=== PATIENT | male | born 1970 | race Hispanic/Latino ===

== ENCOUNTER 2020-01-07 14:38 | Inpatient (IN) | payer OTHER ==
--- NOTE | 2020-01-07 15:27 | Emergency Department Report ---
HPI - General Chief Complaint: Chest Pain Time Seen by Provider: 01/07/20 15:05 - HPI HPI: Room 26 The patient is a 49-year-old male present with a chief complaint of chest pain. The patient is an inmate and states that approximate 2 hours ago he was sitting on his bunk when he had a syncopal episode. The patient states his next memory is being attended to by staff. Patient states he was having pain in his chest feels like someone is stepping on a baseball on top of his chest. Patient admits to shortness of breath, diaphoresis and nausea without vomiting. Patient complains of pain in the left upper extremity and gives his chest pain score of 8/10. The patient also complains of pain at the forehead and face from his fall. ED Past Medical Hx - Past Medical History Previous Medical History?: Yes Hx Hypertension: Yes Hx Heart Attack/AMI: Yes (11 stents) Hx Congestive Heart Failure: Yes (EF of 15%, LAST ECHO ) Hx GERD: Yes Hx Kidney Stones: Yes Hx Psychiatric Treatment: Yes (BIPOLAR) - Surgical History Past Surgical History?: Yes Hx Coronary Stent: Yes Hx Cholecystectomy: Yes Additional Surgical History: RIGHT ELBOW - Family History Family history: no significant - Social History Smoking Status: Former Smoker Substance Use Type: None - Medications Home Medications: Home Medications Medication Instructions Recorded Confirmed Last Taken Type Apixaban [Eliquis] 5 mg PO Q12HR #60 tablet 12/20/19 Unknown Rx AtorvaSTATin [Lipitor] 80 mg PO QHS #30 tablet 12/20/19 Unknown Rx Clopidogrel [Plavix] 75 mg PO QDAY #30 tablet 12/20/19 Unknown Rx Furosemide [Lasix TAB] 40 mg PO DAILY@0600 #30 tablet 12/20/19 Unknown Rx Losartan [Cozaar] 12.5 mg PO QDAY #60 tablet 12/20/19 Unknown Rx Metoprolol [Lopressor TAB] 50 mg PO TID #90 tablet 12/20/19 Unknown Rx ED Review of Systems ROS: Stated complaint: CHEST PAIN Other details as noted in HPI Constitutional: diaphoresis Eyes: denies: eye pain ENT: denies: throat pain Respiratory: shortness of breath Cardiovascular: chest pain Endocrine: no symptoms reported Gastrointestinal: nausea. denies: vomiting Neurological: headache Physical Exam - Physical Exam Vital Signs: Vital Signs 01/07/20 01/07/20 14:43 15:15 Temperature 97.5 F L Pulse Rate 66 Respiratory 20 16 Rate Blood Pressure 132/90 O2 Sat by Pulse 96 96 Oximetry Physical Exam: GENERAL: The patient is well-developed well-nourished male lying on stretcher not appearing to be in acute distress. [] HEENT: Normocephalic. Minimal abrasion to the central forehead. Extraocular motions are intact. Patient has moist mucous membranes. NECK: Supple. No axial step-off CHEST/LUNGS: Clear to auscultation. There is no respiratory distress noted. HEART/CARDIOVASCULAR: Regular. There is no tachycardia. There is no gallop rub or murmur. ABDOMEN: Abdomen is soft, nontender. Patient has normal bowel sounds. There is no abdominal distention. SKIN: Abrasion to forehead. There is no diaphoresis. NEURO: The patient is awake, alert, and oriented. The patient is cooperative. The patient has no focal neurologic deficits. The patient has normal speech MUSCULOSKELETAL: There is no evidence of acute injury. ED Course Vital Signs 01/07/20 01/07/20 14:43 15:15 Temperature 97.5 F L Pulse Rate 66 Respiratory 20 16 Rate Blood Pressure 132/90 O2 Sat by Pulse 96 96 Oximetry ED Medical Decision Making - Lab Data Result diagrams: 01/07/20 15:53 01/07/20 15:53 Laboratory Tests 01/07/20 01/07/20 01/07/20 15:53 15:53 15:53 WBC 10.6 RBC 5.17 H Hgb 12.4 Hct 39.6 MCV 77 L MCH 24 L MCHC 31 L RDW 18.1 H Plt Count 227 Lymph % (Auto) 18.9 Cuming % (Auto) 6.5 Eos % (Auto) 2.2 Baso % (Auto) 1.2 Lymph # 2.0 Cuming # 0.7 Eos # 0.2 Baso # 0.1 Seg Neutrophils % 71.2 H Seg Neutrophils # 7.6 PT 17.0 H INR 1.42 H APTT 28.6 Sodium 141 Potassium 3.7 Chloride 107.8 H Carbon Dioxide 20 L Anion Gap 17 BUN 9 Creatinine 0.9 Estimated GFR > 60 BUN/Creatinine Ratio 10 Glucose 100 Calcium 8.9 Total Creatine Kinase 58 CK-MB (CK-2) 1.6 CK-MB (CK-2) Rel Index 2.7 Troponin T < 0.010 - EKG Data -: EKG Interpreted by Me EKG shows normal: sinus rhythm Rate: normal - EKG Data When compared to previous EKG there are: previous EKG unavailable Interpretation: other (PAC. No ischemic changes seen) - Radiology Data Radiology results: report reviewed (Chest x-ray, CT head, CT facial bones, CT cervical spine), image reviewed (Chest x-ray, CT head, CT facial bones, CT cervical spine) interpreted by me: Chest x-ray-no focal infiltrates, no pneumothorax [address] [address] Cat Scan Report Signed Patient: DONG BASILIO MR#: [id number] : 1970 Acct:[id number] Age/Sex: 49 / M ADM Date: 01/07/20 Loc: ED Attend ing Dr: Ordering Physician: MARICARMEN RAMOS MD Date of Service: 01/07/20 Procedure(s): CT head/brain wo con Accession Number(s): [id number] cc: MARICARMEN RAMOS MD CT head/brain wo con INDICATION / CLINICAL INFORMATION: 49 years Male; Syncopal episode, forehead injury. TECHNIQUE: Routine CT head without contrast. All CT scans at this location are performed using CT dose reduction for ALARA by means of automated exposure control. COMPARISON: None. FINDINGS: BRAIN / INTRACRANIAL CONTENTS: The brain appears to demonstrate appropriate attenuation for age. The ventricular system is within normal limits in size and configuration. There is no clear CT evidence of acute intracranial hemorrhage or significant mass effect. ORBITS: No significant abnormality of visualized orbits. SINUSES / MASTOIDS: There is minimal mucosal thickening along the posterior sphenoid sinuses. CRANIOCERVICAL JUNCTION: No significant abnormality. ADDITIONAL FINDINGS: None. IMPRESSION: 1. There is no CT evidence of acute intracranial process. Signer Name: Everardo Hutchinson MD Signed: 01/07/2020 4:49 PM Workstation Name: [id number] Transcribed By: MR Dictated By: Everardo Hutchinson MD Electronically Authenticated By: Everardo Hutchinson MD Signed Date/Time: 01/07/201648 DD/ 46 TD/TT: [address] [address] Cat Scan Report Signed Patient: DONG BASILIO MR#: [id number] : 1970 Acct:[id number] Age/Sex: 49 / M ADM Date: 01/07/20 Loc: ED Attending Dr: Ordering Physician: MARICARMEN RAMOS MD Date of Service: 01/07/20 Procedure(s): CT facial bones wo con Accession Number(s): [id number] cc: MARICARMEN RAMOS MD CT MAXILLOFACIAL WITHOUT CONTRAST INDICATION / CLINICAL INFORMATION: Syncopal episode, forehead injury. TECHNIQUE: All CT scans at this location are performed using CT dose reduction for ALARA by means of automated exposure control. COMPARISON: None available. FINDINGS: FACIAL BONES: There is no CT evidence of acute fracture involving the facial bones. The orbital fortune, sinuses and zygomatic arches appear intact. PARANASAL SINUSES: There is minimal mucosal thickening within the ethmoid air cells and along the posterior sphenoid sinuses. The maxillary sinuses are clear. The frontal sinuses are hypoplastic. There is mild deviation of the nasal septum toward the left. ORBITS: There is no CT evidence of significant inflammatory changes involving the orbits. VISUALIZED INTRACRANIAL STRUCTURES: No significant abnormality. ADDITIONAL FINDINGS: The mastoid air cells are pneumatized. IMPRESSION: 1. There is no CT evidence of acute fracture involving the facial bones. 2. There is minimal mucosal thickening within the ethmoid and posterior sphenoid sinuses. Signer Name: Everardo Hutchinson MD Signed: 01/07/2020 4:53 PM Workstation Name: [id number] Transcribed By: MR Dictated By: Everardo Hutchinson MD Electronically Authenticated By: Everardo Hutchinson MD Signed Date/Time: 01/07/201652 DD/ 49 TD/TT: [facility] [address] [place] [address] Cat Scan Report Signed Patient: DONG BASILIO MR#: [id number] : 1970 Acct:[id number] Age/Sex: 49 / M ADM Date: 01/07/20 Loc: ED Attending Dr: Ordering Physician: MARICARMEN RAMOS MD Date of Service: 01/07/20 Procedure(s): CT cervical spine wo con Accession Number(s): [id number] cc: MARICARMEN RAMOS MD CT cervical spine wo con INDICATION / CLINICAL INFORMATION: 49 years Male; Syncopal episode, forehead injury. TECHNIQUE: Axial CT images of the cervical spine were obtained. Sagittal and coronal reformatted images were produced. All CT scans at this location are performed using CT dose reduction for ALARA by means of automated exposure control. COMPARISON: None available. FINDINGS: POST-SURGICAL CHANGES: None. ALIGNMENT: There is mild anterolisthesis at C3-4 which appears to be on a degenerative basis given the degree of facet joint arthropathy. There is also slight curvature of the cervical spine, convex toward the left. VERTEBRAE: There are multilevel degenerative endplate changes involving the cervical spine, most notably at C5-6 and C6-7. However, there is n o clear CT evidence of acute fracture. INTRAVERTEBRAL DISCS:Disc spaces are fairly well-maintained throughout without significant canal stenosis. PARASPINAL SOFT TISSUES: The posterior spondylosis effaces the ventral subarachnoid space and lateral recesses at C3-4. Additionally, there is marked neural foraminal narrowing bilaterally. There is mild right foraminal narrowing at C4-5. The spondylosis at C5-6 also effaces the ventral subarachnoid space. There is marked right and moderate left neural foraminal narrowing. The central spondylosis at C6-7 also effaces the suba rachnoid space. There is marked foraminal narrowing bilaterally. ADDITIONAL FINDINGS: No prevertebral soft tissue fluid collections are identified. IMPRESSION: 1. There is no CT evidence of acute fracture involving the cervical spine. 2. There are multilevel advanced degenerative changes as detailed above. Signer Name: Everardo Hucthinson MD Signed: 01/07/2020 5:00 PM Workstation Name: [id number] Transcribed By: MR Dictated By: Everardo Hutchinson MD Electronically Authenticated By: Everardo Hutchinson MD Signed Date/Time: 01/07/20 1700 DD/ 165 TD/TT: - Differential Diagnosis ACS, pericarditis, GERD Critical care attestation.: If time is entered above; I have spent that time in minutes in the direct care of this critically ill patient, excluding procedure time. ED Disposition Clinical Impression: Chest pain, Closed head injury, Syncope Disposition: OP ADMIT IP TO THIS HOSP Is pt being admited?: Yes Does the pt Need Aspirin: Yes Condition: Fair Instructions: Chest Pain (ED), Syncope (ED) Time of Disposition: 18:18 (Hospitalist paged (Dr. Man))
[2020-01-07] MEDS ORDERED: ONDANSETRON 4 MG/2 ML INJ IV ONE (15:37)
[2020-01-07] MEDS ORDERED: fentaNYL 100 MCG/2 ML INJ IV ONE ×3 (15:37→18:05)
--- NOTE | 2020-01-07 15:47 | XRay Report ---
CHEST 1 VIEW 01/07/2020 3:17 PM INDICATION / CLINICAL INFORMATION: chest pain. COMPARISON: 12/17/2019 FINDINGS: SUPPORT DEVICES: None. HEART / MEDIASTINUM: No significant abnormality. LUNGS / PLEURA: No significant pulmonary or pleural abnormality. No pneumothorax. ADDITIONAL FINDINGS: No significant additional findings. IMPRESSION: 1. No acute findings. Signer Name: Harshil Reeves MD Signed: 01/07/2020 3:43 PM Workstation Name: [id number]
[2020-01-07 16:03] LABS: Basophils # (Auto) 0.1 K/mm3 (0.0-0.1); Basophils % (Auto) 1.2 % (0.0-1.8); Eosinophils # (Auto) 0.2 K/mm3 (0.0-0.4); Eosinophils % (Auto) 2.2 % (0.0-4.3); Hematocrit 39.6 % (35.5-45.6); Hemoglobin 12.4 gm/dl (11.8-15.2); Lymphocytes % (Auto) 18.9 % (13.4-35.0); Mean Corpuscular HGB Conc 31 % (32-34); Mean Corpuscular Volume 77 fl (84-94); Monocytes # (Auto) 0.7 K/mm3 (0.0-0.8); Monocytes % (Auto) 6.5 % (0.0-7.3); Platelet Count 227 K/mm3 (140-440); Red Blood Count 5.17 M/mm3 (3.65-5.03); Red Cell Distribution Width 18.1 % (13.2-15.2)
[2020-01-07 16:13] LABS: INR 1.42 (0.87-1.13)
[2020-01-07 16:14] LABS: Partial Thromboplastin Time 28.6 Sec. (24.2-36.6)
[2020-01-07 16:30] LABS: Creatine Kinase MB 1.6 ng/mL (0.0-4.0)
[2020-01-07 16:32] LABS: BUN/Creatinine Ratio 10; Blood Urea Nitrogen 9 mg/dL (9-20); Calcium 8.9 mg/dL (8.4-10.2); Hemolysis Index 14
--- NOTE | 2020-01-07 16:54 | Cat Scan Report ---
CT head/brain wo con INDICATION / CLINICAL INFORMATION: 49 years Male; Syncopal episode, forehead injury. TECHNIQUE: Routine CT head without contrast. All CT scans at this location are performed using CT dos e reduction for ALARA by means of automated exposure control. COMPARISON: None. FINDINGS: BRAIN / INTRACRANIAL CONTENTS: The brain appears to demonstrate appropriate attenuation for age. The ventricular system is within normal limits in size and configuration. There is no clear CT evidence o f acute intracranial hemorrhage or significant mass effect. ORBITS: No significant abnormality of visualized orbits. SINUSES / MASTOIDS: There is minimal mucosal thickening along the posterior sphenoid sinuses. CRANIOCERVICAL JUNCTION: No significant abnormality. ADDITIONAL FINDINGS: None. IMPRESSION: 1. There is no CT evidence of acute intracranial process. Signer Name: Everardo Hutchinson MD Signed: 01/07/2020 4:49 PM Workstation Name: [id number]
--- NOTE | 2020-01-07 16:58 | Cat Scan Report ---
CT MAXILLOFACIAL WITHOUT CONTRAST INDICATION / CLINICAL INFORMATION: Syncopal episode, forehead injury. TECHNIQUE: All CT scans at this location are performed using CT dose reduction for ALARA by means of automated e xposure control. COMPARISON: None available. FINDINGS: FACIAL BONES: There is no CT evidence of acute fracture involving the facial bones. The orbital fortune , sinuses and zygomatic arches appear intact. PARANASAL SINUSES: There is minimal mucosal thickening within the ethmoid air cells and along the pos terior sphenoid sinuses. The maxillary sinuses are clear. The frontal sinuses are hypoplastic. There is mild deviation of the nasal septum toward the left. ORBITS: There is no CT evidence of significant inflammatory changes involving the orbits. VISUALIZED INTRACRANIAL STRUCTURES: No significant abnormality. ADDITIONAL FINDINGS: The mastoid air cells are pneumatized. IMPRESSION: 1. There is no CT evidence of acute fracture involving the facial bones. 2. There is minimal mucosal thickening within the ethmoid and posterior sphenoid sinuses. Signer Name: Everardo Hutchinson MD Signed: 01/07/2020 4:53 PM Workstation Name: [id number]
--- NOTE | 2020-01-07 17:04 | Cat Scan Report ---
CT cervical spine wo con INDICATION / CLINICAL INFORMATION: 49 years Male; Syncopal episode, forehead injury. TECHNIQUE: Axial CT images of the cervical spine were obtained. Sagittal and coronal reformatted images were pr oduced. All CT scans at this location are performed using CT dose reduction for ALARA by means of aut omated exposure control. COMPARISON: None available. FINDINGS: POST-SURGICAL CHANGES: None. ALIGNMENT: There is mild anterolisthesis at C3-4 which appears to be on a degenerative basis given th e degree of facet joint arthropathy. There is also slight curvature of the cervical spine, convex tow anali the left. VERTEBRAE: There are multilevel degenerative endplate changes involving the cervical spine, most nota karely at C5-6 and C6-7. However, there is no clear CT evidence of acute fracture. INTRAVERTEBRAL DISCS:Disc spaces are fairly well-maintained throughout without significant canal sten osis. PARASPINAL SOFT TISSUES: The posterior spondylosis effaces the ventral subarachnoid space and lateral recesses at C3-4. Additionally, there is marked neural foraminal narrowing bilaterally. There is mil d right foraminal narrowing at C4-5. The spondylosis at C5-6 also effaces the ventral subarachnoid space. There is marked right and modera te left neural foraminal narrowing. The central spondylosis at C6-7 also effaces the subarachnoid spa ce. There is marked foraminal narrowing bilaterally. ADDITIONAL FINDINGS: No prevertebral soft tissue fluid collections are identified. IMPRESSION: 1. There is no CT evidence of acute fracture involving the cervical spine. 2. There are multilevel advanced degenerative changes as detailed above. Signer Name: Everardo Hutchinson MD Signed: 01/07/2020 5:00 PM Workstation Name: [id number]
[2020-01-07] MEDS ORDERED: NITROGLYCERIN 2% OINT 1 GM TP ONE (18:05)
[2020-01-07] MEDS ORDERED: ASPIRIN 325 MG TAB PO ONE (18:06)
--- NOTE | 2020-01-07 18:38 | History and Physical Report ---
History of Present Illness Chief complaint: My chest hurts and I am short of breath a little bit History of present illness: 49 YO Male with CAD S/P Stent Placement on antiplatelet therapy, Atrial Fib on Therapeutic anticoagulation, [place], Systolic CHF(EF 15%), GERD, Bipolar Disorder, Obesity, HTN, HLD, Nephrolithiasis presents to ED for evaluation. Pt states that he has experienced sudden onset of pain in his chest that began 2 hours prior to presentation to the hospital. Patient states that his pain is 8/10, substernal, nonradiating, constant, worsened with exertion, relieved with rest, associated with shortness of breath, associated with diaphoresis. Patient acknowledges decreased exercise tolerance. EMS was notified and upon arrival the patient was found to be in distress and subsequently transported to [facility] for further care and evaluation of the aforementioned symptoms. Patient seen and evaluated in the emergency department. Lab and imaging studies reviewed. Patient found to have symptoms consistent with angina as well as exacerbation of congestive heart failure. Patient admitted to telemetry. Cardiology team consulted in ED. prior admission on 12/17/2019 reviewed. All listed medication has been reconciled at the time of the admission. Patient denies fever, shaking chills, palpitations, productive cough, skin rash, recent ill contacts, or known exposure to COVID-19. Past History Past Medical History: CAD, heart failure, hypertension, hyperlipidemia Past Surgical History: cholecystectomy, Other (Cardiac stent placement) Social history: . denies: smoking, alcohol abuse Family history: diabetes, hypertension Medications and Allergies Allergies Allergy/AdvReac Type Severity Reaction Status Date / Time No Known Allergies Allergy Verified 08/23/14 12:36 Home Medications Medication Instructions Recorded Confirmed Last Taken Type AtorvaSTATin [Lipitor] 80 mg PO QHS #30 tablet 12/20/19 01/07/20 01/06/20 Rx Clopidogrel [Plavix] 75 mg PO QDAY #30 tablet 12/20/19 01/07/20 01/07/20 Rx Furosemide [Lasix TAB] 40 mg PO DAILY@0600 #30 tablet 12/20/19 01/07/20 01/07/20 Rx Losartan [Cozaar] 12.5 mg PO QDAY #60 tablet 12/20/19 01/07/20 01/07/20 Rx Digoxin [Lanoxin] 0.125 mg PO DAILY 01/07/20 01/07/20 01/07/20 History Metoprolol [Lopressor TAB] 50 mg PO BID 01/07/20 01/07/20 01/07/20 History Warfarin [Coumadin] 5 mg PO DAILY 01/07/20 01/07/20 01/07/20 History Review of Systems Constitutional: no weight loss, no weight gain, no fever, no chills Ears, nose, mouth and throat: no ear pain, no ear discharge, no tinnitis, no decreased hearing Cardiovascular: chest pain, shortness of breath, dyspnea on exertion, decreased exercise tolerance, no rapid/irregular heart beat, no edema Respiratory: no cough, no cough with sputum, no excessive sputum Gastrointestinal: no nausea, no vomiting, no diarrhea Genitourinary Male: no hematuria, no flank pain, no discharge, no urinary frequency, no urinary hesitancy Rectal: no pain, no incontinence, no bleeding Musculoskeletal: no neck stiffness, no neck pain, no arm numbness/tingling, no shooting leg pain Integumentary: no rash, no pruritis, no redness, no wounds Neurological: no head injury, no transient paralysis, no paralysis, no parathesias, no tingling, no seizures Psychiatric: no anxiety, no memory loss, no sleep disturbances, no hypersomnia, no change in appetite, no change in libido Endocrine: no cold intolerance, no polyphagia, no excessive thirst, no polydipsia Hematologic/Lymphatic: no easy bruising, no easy bleeding Allergic/Immunologic: no urticaria, no wheezing Exam - Constitutional Vitals: Temp Pulse Resp BP Pulse Ox 97.5 F L 70 16 127/87 96 01/07/20 14:43 01/07/20 18:12 01/07/20 15:15 01/07/20 18:12 01/07/20 15:15 General appearance: Present: mild distress, obese - EENT Eyes: Present: PERRL ENT: hearing intact, clear oral mucosa - Neck Neck: Present: supple, normal ROM - Respiratory Respiratory effort: normal Respiratory: bilateral: CTA - Cardiovascular Rhythm: irregularly irregular Heart Sounds: Present: S1 & S2. Absent: rub, click - Extremities Extremities: pulses symmetrical, No edema Peripheral Pulses: within normal limits - Abdominal General gastrointestinal: Present: soft, non-tender, non-distended, normal bowel sounds Male genitourinary: Present: normal - Integumentary Integumentary: Present: clear, warm, dry - Musculoskeletal Musculoskeletal: gait normal, strength equal bilaterally - Psychiatric Psychiatric: appropriate mood/affect, intact judgment & insight - Neurologic Neurologic: CNII-XII intact, moves all extremities HEART Score - HEART Score Troponin: Troponin T < 0.010 ng/mL (0.00-0.029) 01/07/20 15:53 Results - Labs CBC & Chem 7: 01/07/20 15:53 01/07/20 15:53 Labs: Abnormal lab results 01/07/20 01/07/20 01/07/20 Range/Units 15:53 15:53 15:53 RBC 5.17 H (3.65-5.03) M/mm3 MCV 77 L (84-94) fl MCH 24 L (28-32) pg MCHC 31 L (32-34) % RDW 18.1 H (13.2-15.2) % Seg Neutrophils % 71.2 H (40.0-70.0) % PT 17.0 H (12.2-14.9) Sec. INR 1.42 H (0.87-1.13) Chloride 107.8 H (98-107) mmol/L Carbon Dioxide 20 L (22-30) mmol/L Assessment and Plan - Patient Problems (1) Angina at rest Current Visit: Yes Status: Acute Plan to address problem: Admit to telemetry, cardiology consulted in ED, echocardiogram reviewed, further testing and care as per cardiology team. Continue and therapeutic anticoagulation. (2) CHF (congestive heart failure) Current Visit: Yes Status: Acute Qualifiers: Heart failure type: systolic Heart failure chronicity: acute on chronic Qualified Code(s): I50.23 - Acute on chronic systolic (congestive) heart failure Plan to address problem: Strict I/O, monitor urine output every shift, daily weight, BNP, supplemental oxygen, pulse oximetry, echocardiogram reviewed. Cardiology team consulted in ED. digoxin level. (3) Atrial fibrillation and flutter Current Visit: No Status: Acute Plan to address problem: Continue therapeutic anticoagulation, continue digoxin for rate control, supportive care, cardiology team consulted in ED. (4) Hypertension Current Visit: Yes Status: Acute Qualifiers: Hypertension type: essential hypertension Qualified Code(s): I10 - Essential (primary) hypertension Plan to address problem: Monitor blood pressure every shift, continue medical management. (5) GERD (gastroesophageal reflux disease) Current Visit: Yes Status: Acute Qualifiers: Esophagitis presence: without esophagitis Qualified Code(s): K21.9 - Gastro-esophageal reflux disease without esophagitis Plan to address problem: PPI therapy, supportive care. (6) Coronary artery disease Current Visit: Yes Status: Acute Qualifiers: Associated angina: with stable angina Plan to address problem: Admit to telemetry, serial cardiac enzymes, continue antiplatelet therapy, risk factor reduction, low-cholesterol diet, statin therapy. (7) Hyperlipidemia Current Visit: Yes Status: Acute Qualifiers: Hyperlipidemia type: mixed hyperlipidemia Qualified Code(s): E78.2 - Mixed hyperlipidemia Plan to address problem: Statin therapy, low-cholesterol diet, risk factor reduction. (8) DVT prophylaxis Current Visit: Yes Status: Acute Plan to address problem: SCD to bilateral lower extremities while in bed, continue therapeutic anticoagulation
[2020-01-07] MEDS ORDERED: ONDANSETRON 4 MG/2 ML INJ IV PRN (18:43)
[2020-01-07] MEDS ORDERED: METOPROLOL TARTRATE 50 MG TAB PO SCH (20:00)
[2020-01-07] MEDS ORDERED: APIXABAN 5 MG TAB PO SCH (22:00)
[2020-01-07] MEDS: WARFARIN 7.5 MG TAB PO SCH (22:49)
[2020-01-07] MEDS: METOPROLOL TARTRATE 50 MG TAB PO SCH (22:51)
[2020-01-08] MEDS ORDERED: MORPHINE 2 MG/1 ML INJ IV ONE (05:00)
[2020-01-08 05:39] LABS: Basophils # (Auto) 0.1 K/mm3 (0.0-0.1); Basophils % (Auto) 1.8 % (0.0-1.8); Eosinophils # (Auto) 0.2 K/mm3 (0.0-0.4); Eosinophils % (Auto) 3.9 % (0.0-4.3); Hematocrit 37.1 % (35.5-45.6); Hemoglobin 11.6 gm/dl (11.8-15.2); Lymphocytes # (Auto) 1.4 K/mm3 (1.2-5.4); Lymphocytes % (Auto) 22.3 % (13.4-35.0); Mean Corpuscular HGB Conc 31 % (32-34); Mean Corpuscular Volume 76 fl (84-94); Monocytes # (Auto) 0.6 K/mm3 (0.0-0.8); Monocytes % (Auto) 8.8 % (0.0-7.3); Platelet Count 198 K/mm3 (140-440); Red Blood Count 4.87 M/mm3 (3.65-5.03); Red Cell Distribution Width 18.1 % (13.2-15.2)
[2020-01-08 05:56] LABS: INR 1.9 (0.87-1.13)
[2020-01-08 05:58] LABS: BUN/Creatinine Ratio 10; Blood Urea Nitrogen 10 mg/dL (9-20); Calcium 8.8 mg/dL (8.4-10.2); Hemolysis Index 10
[2020-01-08] MEDS: FUROSEMIDE 40 MG TAB PO SCH ×2 (06:24→09:52)
[2020-01-08] MEDS: CLOPIDOGREL 75 MG TAB PO SCH (09:01)
[2020-01-08] MEDS: LOSARTAN 25 MG TAB PO SCH (09:02)
[2020-01-08] MEDS: ACETAMINOPHEN 325 MG TAB PO PRN ×2 (09:02→12:16)
[2020-01-08] MEDS: METOPROLOL TARTRATE 50 MG TAB PO SCH ×2 (09:02→21:43)
[2020-01-08] MEDS ORDERED: WARFARIN 5 MG TAB PO SCH (10:00)
--- NOTE | 2020-01-08 11:18 | Consultation ---
CARDIOLOGY CONSULTATION HISTORY OF PRESENT ILLNESS: The patient is a 49-year-old white gentleman known to us in the past, presented to the Emergency Room with complaints of anterior chest pain, which he feels like somebody is stabbing on the chest at 2 particular points. This is going on for many hours on the day of admission. The pain is mostly located in the anterior chest, nonradiating. He has some associated shortness of breath. Also, he claims that he passed out and he hit his head and he does not know the exact details. He does not remember what exactly happened. There is a minor abrasion noted on the forehead. He says his chest pain is like baseball on the top of his chest. Also, complaining of some pain on the forehead. He is taking his medications regularly. EKG done in the Emergency Room showed sinus rhythm with frequent PVCs. Laboratory data showed WBC count of 10.6 thousand with hemoglobin of 12.4 g/dL, potassium of 3.7, BUN of 9, creatinine of 0.9. Cardiac enzymes, both troponin T and CK-MB are within normal range. The patient had chest x-ray done in the Emergency Room, which was unremarkable, similarly had x-ray of the brain performed, which did not show any acute intracranial process. Also had CT scan of the cervical spine was performed. The patient was discharged from this hospital only recently. He had cardiac catheterization performed on 12/20/2019. This showed evidence of severe LV systolic dysfunction in the range of 10-15%. Right coronary artery was dominant vessel, supplying multiple stents, starting in the proximal part, in the mid and distal part extending into the PDA. All the stents are widely patent with only mild disease, maybe 10-20% in-stent restenosis in the mid part. PDA is small caliber vessel appeared to be diseased. Similarly, left ventricular branch, small vessel shows 50% smooth lesion at the ostium. Left coronary artery shows patent stents in the proximal and mid LAD. There are widely patent. Mild irregularities noted in the distal LAD. Diagonal branch is small caliber and circumflex artery shows smooth 30-40% ostial lesion. Patent stents are noted in the proximal circumflex and mid circumflex artery. The stent in the proximal part of the obtuse marginal branch shows a [id number] in-stent restenosis in the range of 40% to 50%. No collaterals were noted. The patient was continued on medical therapy and was recommended to have outpatient followup for consideration for ICD placement. 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 During last admission, the patient was noted to be in atrial fib/flutter with heart rates 100-110 beats per minute. The patient's other diagnoses included history of ischemic cardiomyopathy, heart failure with reduced ejection fraction, history of atrial fibrillation, anticoagulated with Eliquis in the past in addition to polysubstance abuse. The patient was hospitalized at [facility] in 11/2019 for chest pain and heart failure. EKG done at that time on 12/08/2019 showed ejection fraction of 15-20%. RV was mildly dilated with moderate pulmonary hypertension in the range of 49 mmHg. Also, was admitted to [facility] in 09/2019 for cardiogenic shock requiring dobutamine. Left heart catheterization done in 09/2019 showed LAD mild disease, circumflex 99% with PCI of the mid circumflex. The patient left against medical advice. CURRENT MEDICATIONS: Included atorvastatin 80 mg a day, Plavix 75 mg daily, digoxin 0.125 mg a day, furosemide 40 mg daily, losartan 12.5 mg daily, metoprolol tartrate 50 mg b.i.d. in addition to warfarin 7.5 mg once a day. PAST SURGICAL HISTORY: Included cholecystectomy in addition to cardiac history as mentioned above. SOCIAL HISTORY: He is . Denies any history of smoking. REVIEW OF SYSTEMS: Denies any fever, coughing recently. Complains of some shortness of breath. As mentioned above, he is having intermittent anterior chest pain on the day of admission. Cardiac history as mentioned above has a history of coronary artery disease with multiple stents in all the vessels in addition to history of atrial fibrillation. History of essential hypertension. No history of nausea or vomiting. No skin rash. History of anxiety, on Xanax. No history of anemia. No history of urticaria. Denies any headache. No history of seizures. PHYSICAL EXAMINATION: GENERAL: The patient appears to be comfortable, in no acute distress, well-developed, well-nourished. HEENT: Conjunctivae pink. Sclerae anicteric. NECK: Supple. HEART: Regular, no significant murmur noted. LUNGS: Clear. ABDOMEN: Benign. EXTREMITIES: Without edema. NEUROLOGIC: Alert, oriented x 3. FINAL IMPRESSION: 1. Chest pain of 1-day duration with cardiac enzymes being negative. EKG showing sinus rhythm with no acute changes. Considering he had multiple cardiac catheterizations performed including only few weeks ago, would continue medical therapy, enzymes being negative, medical therapy appears to be appropriate. 2. Paroxysmal atrial fibrillation, presently in sinus rhythm. Continue anticoagulation with warfarin. 3. History of syncopal episode. The patient states he passed out and he is not sure exactly happened. He had some abrasion on the forehead. It appears the patient may have syncopal episode. Considering the patient developed severe left ventricular dysfunction with history of syncope, we will consider ICD placement. We will monitor on the telemetry at this point. The patient is also on digoxin. 4. History of essential hypertension. 5. History of gastroesophageal reflux disease. 6. History of hyperlipidemia. The patient at this time appears to be stable. Continues to have anterior chest pain; however, we will continue medical therapy with the above history. We will continue to monitor in telemetry. Continue present medical therapy. We will consider ICD placement considering history of syncope. JOB# [id number] LEX/LIVE
[2020-01-08] MEDS: DIGOXIN 0.125 MG TAB PO SCH (12:16)
--- NOTE | 2020-01-08 13:28 | Progress Note ---
Assessment and Plan - Patient Problems (1) Angina at rest Current Visit: Yes Status: Acute Plan to address problem: Admit to telemetry, cardiology consulted in ED, prior echocardiogram reviewed, further testing and care as per cardiology team. Continue and therapeutic anticoagulation. (2) CHF (congestive heart failure) Current Visit: Yes Status: Acute Qualifiers: Heart failure type: systolic Heart failure chronicity: acute on chronic Qualified Code(s): I50.23 - Acute on chronic systolic (congestive) heart failure Plan to address problem: Strict I/O, monitor urine output every shift, daily weight, BNP, supplemental oxygen, pulse oximetry, echocardiogram reviewed. Cardiology team consulted in ED. digoxin restarted. (3) Atrial fibrillation and flutter Current Visit: No Status: Acute Plan to address problem: Continue therapeutic anticoagulation, continue digoxin for rate control, supportive care, cardiology team consulted in ED. (4) Hypertension Current Visit: Yes Status: Acute Qualifiers: Hypertension type: essential hypertension Qualified Code(s): I10 - Essential (primary) hypertension Plan to address problem: Monitor blood pressure every shift, continue medical management. (5) GERD (gastroesophageal reflux disease) Current Visit: Yes Status: Acute Qualifiers: Esophagitis presence: without esophagitis Qualified Code(s): K21.9 - Gastro-esophageal reflux disease without esophagitis Plan to address problem: PPI therapy, supportive care. (6) Coronary artery disease Current Visit: Yes Status: Acute Qualifiers: Associated angina: with stable angina Plan to address problem: Admit to telemetry, serial cardiac enzymes, continue antiplatelet therapy, risk factor reduction, low-cholesterol diet, statin therapy. (7) Hyperlipidemia Current Visit: Yes Status: Acute Qualifiers: Hyperlipidemia type: mixed hyperlipidemia Qualified Code(s): E78.2 - Mixed hyperlipidemia Plan to address problem: Statin therapy, low-cholesterol diet, risk factor reduction. (8) DVT prophylaxis Current Visit: Yes Status: Acute Plan to address problem: SCD to bilateral lower extremities while in bed, continue therapeutic anticoagulation History Interval history: 49 YO Male HD #2 with Angina, Systolic CHF, Atrial Fib, CAD S/P Stent Placement on antiplatelet therapy, Bipolar Disorder, Obesity, HTN, HLD. Patient rested comfortably overnight. Patient continues to complain of intermittent chest pain. No EKG changes. Cardiology team consulted. No reported nursing events. Patient hemodynamically stable overnight. Hospitalist Physical - Constitutional Vitals: Temp Pulse Resp BP Pulse Ox 97.7 F 75 16 115/66 98 01/08/20 12:14 01/08/20 12:16 01/08/20 12:14 01/08/20 12:16 01/08/20 12:14 General appearance: Present: mild distress, obese - EENT Eyes: Present: PERRL ENT: hearing intact - Neck Neck: Present: supple - Respiratory Respiratory: bilateral: CTA - Cardiovascular Rhythm: regular Heart Sounds: Present: S1 & S2 - Extremities Extremities: no ischemia Peripheral Pulses: within normal limits - Abdominal General gastrointestinal: soft, non-tender, non-distended - Integumentary Integumentary: Present: clear, warm, dry - Psychiatric Psychiatric: appropriate mood/affect, cooperative - Neurologic Neurologic: CNII-XII intact HEART Score - HEART Score Troponin: Troponin T < 0.010 ng/mL (0.00-0.029) 01/07/20 15:53 Results - Labs CBC & Chem 7: 01/08/20 04:42 01/08/20 04:42 Labs: Laboratory Last Values WBC 6.3 K/mm3 (4.5-11.0) 01/08/20 04:42 RBC 4.87 M/mm3 (3.65-5.03) 01/08/20 04:42 Hgb 11.6 gm/dl (11.8-15.2) L 01/08/20 04:42 Hct 37.1 % (35.5-45.6) 01/08/20 04:42 MCV 76 fl (84-94) L 01/08/20 04:42 MCH 24 pg (28-32) L 01/08/20 04:42 MCHC 31 % (32-34) L 01/08/20 04:42 RDW 18.1 % (13.2-15.2) H 01/08/20 04:42 Plt Count 198 K/mm3 (140-440) 01/08/20 04:42 Lymph % (Auto) 22.3 % (13.4-35.0) 01/08/20 04:42 Dickens % (Auto) 8.8 % (0.0-7.3) H 01/08/20 04:42 Eos % (Auto) 3.9 % (0.0-4.3) 01/08/20 04:42 Baso % (Auto) 1.8 % (0.0-1.8) 01/08/20 04:42 Lymph # 1.4 K/mm3 (1.2-5.4) 01/08/20 04:42 Dickens # 0.6 K/mm3 (0.0-0.8) 01/08/20 04:42 Eos # 0.2 K/mm3 (0.0-0.4) 01/08/20 04:42 Baso # 0.1 K/mm3 (0.0-0.1) 01/08/20 04:42 Seg Neutrophils % 63.2 % (40.0-70.0) 01/08/20 04:42 Seg Neutrophils # 4.0 K/mm3 (1.8-7.7) 01/08/20 04:42 PT 21.3 Sec. (12.2-14.9) H 01/08/20 04:42 INR 1.90 (0.87-1.13) H 01/08/20 04:42 APTT 28.6 Sec. (24.2-36.6) 01/07/20 15:53 Sodium 143 mmol/L (137-145) 01/08/20 04:42 Potassium 3.7 mmol/L (3.6-5.0) 01/08/20 04:42 Chloride 107.1 mmol/L (98-107) H 01/08/20 04:42 Carbon Dioxide 23 mmol/L (22-30) 01/08/20 04:42 Anion Gap 17 mmol/L 01/08/20 04:42 BUN 10 mg/dL (9-20) 01/08/20 04:42 Creatinine 1.0 mg/dL (0.8-1.5) 01/08/20 04:42 Estimated GFR > 60 ml/min 01/08/20 04:42 BUN/Creatinine Ratio 10 % 01/08/20 04:42 Glucose 107 mg/dL (75-100) H 01/08/20 04:42 Calcium 8.8 mg/dL (8.4-10.2) 01/08/20 04:42 Total Creatine Kinase 58 units/L (55-170) 01/07/20 15:53 CK-MB (CK-2) 1.6 ng/mL (0.0-4.0) 01/07/20 15:53 CK-MB (CK-2) Rel Index 2.7 (0-4) 01/07/20 15:53 Troponin T < 0.010 ng/mL (0.00-0.029) 01/07/20 15:53 NT-Pro-B Natriuret Pep 5840 pg/mL (0-900) H 01/07/20 18:49 Digoxin 0.8 ng/mL (0.9-2.0) L 01/07/20 20:54 Cortez/IV: Voiding Method Urinal IV Catheter Type [Left INT / Saline Lock External Jugular] Active Medications - Current Medications Current Medications: Generic Name Dose Route Start Last Admin Trade Name Freq PRN Reason Stop Dose Admin Acetaminophen 650 mg 01/07/20 18:43 01/08/20 12:16 Tylenol PO 650 mg Q4H PRN Administration Pain MILD(1-3)/Fever >100.5/SAMSON Atorvastatin Calcium 80 mg 01/07/20 22:00 01/07/20 22:50 Lipitor PO 80 mg QHS JAIDEN Administration Clopidogrel Bisulfate 75 mg 01/08/20 10:00 01/08/20 09:01 Plavix PO 75 mg QDAY JAIDEN Administration Digoxin 0.125 mg 01/08/20 10:00 01/08/20 12:16 Lanoxin PO 0.125 mg DAILY JAIDEN Administration Furosemide 40 mg 01/08/20 06:00 01/08/20 09:52 Lasix PO 40 mg DAILY@0600 JAIDEN Administration Losartan Potassium 12.5 mg 01/08/20 10:00 01/08/20 09:02 Cozaar PO 12.5 mg QDAY JAIDEN Administration Metoprolol Tartrate 50 mg 01/07/20 22:00 01/08/20 09:02 Metoprolol PO 50 mg BID JAIDEN Administration Ondansetron HCl 4 mg 01/07/20 18:43 Zofran IV Q8H PRN Nausea And Vomiting Sodium Chloride 10 ml 01/07/20 22:00 01/08/20 09:03 Sodium Chloride Flush Syringe 10 Ml IV 10 ml BID JAIDEN Administration Sodium Chloride 10 ml 01/07/20 18:43 Sodium Chloride Flush Syringe 10 Ml IV PRN PRN LINE FLUSH Warfarin Sodium 7.5 mg 01/07/20 22:00 01/07/20 22:49 Coumadin PO 7.5 mg DAILY@1700 [facility] Administration Protocol
[2020-01-08] MEDS: WARFARIN 7.5 MG TAB PO SCH (17:28)
[2020-01-09] MEDS: FUROSEMIDE 40 MG TAB PO SCH (06:18)
[2020-01-09 09:50] VITALS: BP 124/78
[2020-01-09] MEDS: CLOPIDOGREL 75 MG TAB PO SCH (10:30)
[2020-01-09] MEDS: DIGOXIN 0.125 MG TAB PO SCH (10:30)
[2020-01-09] MEDS: LOSARTAN 25 MG TAB PO SCH (10:30)
[2020-01-09] MEDS: METOPROLOL TARTRATE 50 MG TAB PO SCH (10:30)
--- NOTE | 2020-01-09 12:26 | Discharge Summary ---
Providers - Providers Date of Admission: 01/07/20 18:43 Attending physician: BETTY COVARRUBIAS 01/07/20 18:28 Consult to Physician [CONS] Urgent Comment: Consulting Provider: DAVID SHETH Physician Instructions: Reason For Exam: Chest pain Primary care physician: SCOTT BATISTA MD Hospitalization Condition: Fair Disposition: DC-30 STILL A PATIENT - Discharge Diagnoses (1) Angina at rest Status: Acute (2) CHF (congestive heart failure) Status: Acute Qualifiers: Heart failure type: systolic Heart failure chronicity: acute on chronic Qualified Code(s): I50.23 - Acute on chronic systolic (congestive) heart failure (3) Atrial fibrillation and flutter Status: Acute (4) Hypertension Status: Acute Qualifiers: Hypertension type: essential hypertension Qualified Code(s): I10 - Essential (primary) hypertension (5) GERD (gastroesophageal reflux disease) Status: Acute Qualifiers: Esophagitis presence: without esophagitis Qualified Code(s): K21.9 - Gastro-esophageal reflux disease without esophagitis (6) Coronary artery disease Status: Acute Qualifiers: Associated angina: with stable angina (7) Hyperlipidemia Status: Acute Qualifiers: Hyperlipidemia type: mixed hyperlipidemia Qualified Code(s): E78.2 - Mixed hyperlipidemia (8) DVT prophylaxis Status: Acute Exam - Constitutional Vitals: Temp Pulse Resp BP Pulse Ox 97.6 F 77 18 124/78 99 01/09/20 07:58 01/09/20 09:30 01/09/20 07:58 01/09/20 07:58 01/09/20 10:00 Plan Follow up with: SCOTT BATISTA MD [Primary Care Provider] - 3-5 Days
--- NOTE | 2020-01-09 13:03 | Progress Note ---
Assessment and Plan Patient continues to have mild ,chronic chest pian,which appears atypical.However,considering recent coronary angiography showing patent stents with non obstructive disease,would continue medical therapy. Also monitoer showing S.R with PVC's.Echo is showing EF around 30 -35%,improving EF with medical therapy.However,would benefit from ICD considering syncopal episode.I explained same to patient and he understands it.Patient would prefer to have procedure close to his home and by his operator in [place].As long as patient has f/u with his operator and continue present medical therapy,he may be discharged him with f/u for placement of ICD by his regular operator.Discussed with . Subjective Date of service: 01/09/20 Interval history: Patient says he has court date tomorrow and would like to be discharged and wants to have f/u with ,his cardilogist in [place].Patient continues to have mild chest pain,which is chronic. Objective Vital Signs Temp Pulse Resp BP Pulse Ox 01/09/20 10:00 99 01/09/20 09:30 77 01/09/20 07:58 97.6 F 79 18 124/78 96 01/09/20 04:49 98.2 F 71 20 111/74 94 01/08/20 23:59 98.0 F 73 20 115/73 91 01/08/20 21:43 73 106/62 01/08/20 20:15 97.3 F L 73 20 106/62 95 01/08/20 20:09 70 01/08/20 16:27 97.7 F 71 18 104/70 93 - Physical Examination General: Appears Well Cardiac: Positive: Reg Rate and Rhythm Lungs: Positive: clear to auscultation Neuro: Positive: Grossly Intact Skin: Negative: Rash Extremities: Absent: edema
[2020-01-09 14:43] LABS: INR 2.79 (0.87-1.13)
[2020-01-09] MEDS ORDERED: WARFARIN 5 MG TAB PO SCH (17:00)
== END 2020-01-09 15:20 | disposition home or self-care (01) | DRG 308 ==
LOC: ED 14:38 → EEVIPCON 14:38 → 4A 18:43
PROVIDERS: ADMIT Internal Medicine; ATTEND Internal Medicine
DX: I48.92 Unspecified atrial flutter (principal); I50.23 Acute on chronic systolic (congestive) heart failure; I11.0 Hypertensive heart disease with heart failure; K21.9 Gastro-esophageal reflux disease without esophagitis; I25.10 Atherosclerotic heart disease of native coronary artery without angina pectoris; E78.5 Hyperlipidemia, unspecified; E66.9 Obesity, unspecified; F31.9 Bipolar disorder, unspecified; I48.0 Paroxysmal atrial fibrillation; I25.2 Old myocardial infarction; Z90.49 Acquired absence of other specified parts of digestive tract; Z83.3 Family history of diabetes mellitus; Z82.49 Family history of ischemic heart disease and other diseases of the circulatory system; Z79.899 Other long term (current) drug therapy; Z68.31 Body mass index [BMI] 31.0-31.9, adult
CPT/HCPCS: 36415; 70450; 70486; 71045; 72125; 80048; 80162; 82550; 82553; 83880; 84484; 85025; 85610; 85730; 87641; 93005; 93306; 94660; 94760; G0378; A9270-GY; J2270; J2405; J3010